=== PATIENT | male | born 1985 | race Native Hawaiian/Other Pacific Islander ===

== ENCOUNTER 2017-06-22 13:56 | Observation (INO) | payer OTHER ==
[~2017-06-22] VITALS: Ht 177.8 cm; Wt 85.3 kg
[2017-06-22 13:48] VITALS: BP 107/77; TEMP 98.2
[2017-06-22] MEDS ORDERED: WELLBUTRIN100 M1 PO (14:06)
[2017-06-22] MEDS ORDERED: SEROQUEL200 MG PO (14:07)
[2017-06-22] MEDS ORDERED: SEROQUEL400 MG PO (14:07)
[2017-06-22] MEDS ORDERED: PANTOPRAZOLE 40MG TA PO (14:08)
[2017-06-22] MEDS ORDERED: TRAZODONE300 MG PO (14:08)
[2017-06-22] MEDS ORDERED: DOCU100C10 PO (14:08)
[2017-06-22 14:28] LABS: PLATELET COUNT 242 K/uL (142-355)
[2017-06-22 14:34] LABS: POTASSIUM 4.4 mmol/L (3.6-5.2)
[2017-06-22 16:05] VITALS: BP 110/82
[2017-06-22 17:45] VITALS: BP 108/74
[2017-06-22 18:11] VITALS: BP 134/84; TEMP 99.1; Ht 177.8 cm; Wt 85.3 kg
[2017-06-22 20:00] VITALS: BP 137/79; TEMP 98.3
[2017-06-23 00:03] VITALS: BP 124/66; TEMP 98.3
[2017-06-23 04:02] VITALS: BP 124/68; TEMP 98.5
[2017-06-23 08:00] VITALS: BP 116/64; TEMP 98
[2017-06-23 11:45] LABS: POTASSIUM 3.8 mmol/L (3.6-5.2)
[2017-06-23 12:00] VITALS: BP 105/62; TEMP 97
[2017-06-23 12:08] LABS: PLATELET COUNT 218 K/uL (142-355)
[2017-06-23 16:00] VITALS: BP 104/60; TEMP 97.8
[2017-06-23 20:00] VITALS: BP 111/68; TEMP 98.5
[2017-06-24] VITALS: BP 103/52; TEMP 98
[2017-06-24 04:00] VITALS: BP 101/50; TEMP 98.1
[2017-06-24 08:00] VITALS: BP 95/46; TEMP 97.8
[2017-06-24 12:00] VITALS: BP 98/50; TEMP 98
== END 2017-06-24 15:30 | disposition home or self-care (01) ==
LOC: ED 13:56 → MED/SURG 17:19
PROVIDERS: ADMIT Emergency Medicine
DX: R10.32 Left lower quadrant pain (principal); K59.09 Other constipation
CPT/HCPCS: 80048; 80053; 81000; 82150; 83605; 83690; 85027; 86318; 96366; 96367; 96372; 99220; 99283; G0378; J0500; J0744; J3490; Q9963